=== PATIENT | male | born 1960 | race Hispanic/Latino ===

== ENCOUNTER → 2020-09-20 | Outpatient (CLI) | payer OTHER ==
[~2020-09-20] MED LIST: COVID-19 VACC, MRNA(MODERNA)/PF 100 MCG/0.5 ML VIAL IM ONE; VITAMINS PO
== END ==
LOC: VACCPMC 10:42
DX: Z23 Encounter for immunization (principal); Z20.828 Contact with and (suspected) exposure to other viral communicable diseases

== ENCOUNTER → 2020-10-25 | Outpatient (CLI) | payer OTHER | LOC: VACCPMC 08:18 | DX: Z23 Encounter for immunization (principal); Z20.822 Contact with and (suspected) exposure to COVID-19 | CPT/HCPCS: 0012A; 91301 ==